=== PATIENT | male | born 1985 | race Two or more races ===

== ENCOUNTER 2018-04-03 01:23 | Observation (INO) | payer SELFPAY ==
[2018-04-03 02:22] LABS: #Lymphocytes 2.7 thou/uL (1.20-3.40); #Monocytes 0.7 thou/uL (0.11-0.59); #Neutrophils 6.1 thou/uL (1.40-6.50); %Basophils 0.5 % (0.0-1.0); %Eosinophils 0.5 % (0.0-10.0); %Lymphocytes 28.7 % (21.0-51.0); %Monocytes 6.8 % (0.0-10.0); %Neutrophils 63.6 % (42.0-75.0); Hemoglobin 14.1 g/dL (14.0-18.0); Mean Corpuscular HGB CONC 33.1 g/dL (32.0-36.0); Mean Corpuscular Hemoglobin 30.6 pg (27.0-31.0); Mean Corpuscular Volume 92.3 fL (78.0-98.0); Mean Platelet Volume 5.9 fL (7.4-10.4); Platelet Count 261 thou/uL (130-400); RBC Distribution Width 11.5 % (11.5-14.5); White Blood Cell (WBC) Count 9.5 thou/uL (4.8-10.8)
[2018-04-03 02:48] LABS: ALT (SGPT) 7 U/L (8-55); AST (SGOT) 14 U/L (5-34); Albumin 4.2 g/dL (3.5-5.0); Alkaline Phosphatase 48 U/L (40-150); Anion Gap 13 mmol/L (10-20); BUN (Urea Nitrogen) 10 mg/dL (8.9-20.6); Bilirubin, Total 0.3 mg/dL (0.2-1.2); CK (CPK) 221 U/L (30-200); Calc. Creatinine Clearance 0 mL/min (70-130); Calcium 9.4 mg/dL (7.8-10.44); Carbon Dioxide 25 mmol/L (22-29); Chloride 108 mmol/L (98-107); Estimated GFR-MDRD Greater than 90; Globulin 2.4 g/dL (2.4-3.5); Glucose 93 mg/dL (70-105); Lipase 25 U/L (8-78); Potassium 4.1 mmol/L (3.5-5.1); Protein, Total 6.6 g/dL (6.0-8.3); Sodium 142 mmol/L (136-145)
[2018-04-03 03:23] LABS: Bilirubin Small (Negative); Blood, Urine Negative (Negative); Clarity CLEAR (Clear); Glucose, Urine (Dipstick) Negative (Negative); Leukocyte Negative (Negative); Nitrite Negative (Negative); Protein, Urine (Dipstick) Negative (Neg-Trace); Specific Gravity, Urine 1.027 (1.002-1.036); pH, Urine 5.5 (5.0-9.0)
[2018-04-03] MEDS ORDERED: Ondansetron ODT 4 MG TAB PO PRN (06:57)
[2018-04-03] MEDS ORDERED: Ondansetron PF 4 MG/2 ML Vial IVP PRN (06:57)
--- NOTE | 2018-04-03 07:57 | CT ---
PRELIMINARY REPORT/[facility]/EMERGENTY AFTER-HOURS PROCEDURE CT Head Without Contrast EXAM DATE/TIME: 04/03/2018 1:58 AM CLINICAL HISTORY: 32 years old, male; Signs and symptoms; Syncope and collapse; Patient HX: 32/m PT presents with compl aint of syncope, chest pain, and diaphoresis anesthesia technician. States he is unsure how long he passed out for, he was pulled into a truck stop and blacked out, urinated on himself, then went inside to call 911. No chest pain at this time. TECHNIQUE: Axial computed tomography images of the head/brain without contrast. COMPARISON: No relevant prior studies available. FINDINGS: Brain: Normal. Ventricles: Normal. Bones/joints: Normal. Sinuses: Right sphenoid sinus disease. Mastoid air cells: Normal as visualized. Soft tissues: Unremarkable. IMPRESSION: No acute intracranial abnormality. Thank you for allowing us to participate in the care of your patient. Dictated and Authenticated by: Rajesh Hamlin MD 04/03/2018 2:30 AM Central Time ([place] & [place]) FINAL REPORT CT HEAD NONCONTRAST: DATE: 04/03/2018. TIME: Performed on an emergency basis at 0158 hours. HISTORY: Syncope. FINDINGS: Agree with the preliminary report by Dr. Hamlin from [facility]. No acute intracranial abnorm alities are demonstrated. POS: [facility]
--- NOTE | 2018-04-03 08:06 | RAD ---
SINGLE VIEW OF THE CHEST: COMPARISON: 04/03/2018. HISTORY: Chest pain. FINDINGS: Single view of the chest shows a normal sized cardiomediastinal silhouette. There is no evidence of c onsolidation, mass, or pleural effusion. The bones are unremarkable. IMPRESSION: No evidence of acute cardiopulmonary disease. POS: [facility]
[2018-04-03 08:23] VITALS: BMI 31.4
[2018-04-03] MEDS: Sodium Chloride 0.9% 1,000 ML IV SCH ×2 (08:59→15:13)
[2018-04-03] MEDS ORDERED: Aspirin Chewable 81 MG TAB PO SCH (09:00)
[2018-04-03] MEDS ORDERED: Acetaminophen 325 MG TAB PO PRN (11:23)
--- NOTE | 2018-04-03 18:14 | HP ---
CHIEF COMPLAINT: Syncope. HISTORY OF PRESENT ILLNESS: The patient is a 32-year-old male with history of HIV, currently on medications, who presented to the hospital with syncopal episode. The patient stated that after getting his blood tested for normal routine labs on Sunday, a few hours later, he started feeling lightheaded and not feeling well. The patient at that time cannot rest throughout the whole day. On Sunday, he felt well, so he decided to go to work Sunday evening. The patient stated that initially after he had unloaded some boxes, started feeling very lightheaded, feeling flushed, was diaphoretic and at this time felt that his heart was pumping very hard. He denied any palpitation. He just felt that his heart was beating very strongly. At this time, the patient stated that he may just go back to his truck where he does have a little bed to lie down and the patient recalled that he apparently passed out and woke up, approximately about maybe about 5 minutes. The patient stated that he had noticed that he had urinated on himself. The patient denied being confused after this episode. The patient states that this has never happened to him before. He does recall that when he was a child, he did have an arrhythmia. I am not sure if this was induced due to medication versus this was something in terms of his heart issues. The patient was put on a monitor for weeks to months according to him. However, the patient does not recall what this event was. The patient states that on and off he has had a feeling of dizziness and feeling his heart beating very strong, however, no palpitations. PAST MEDICAL HISTORY: He has a history of HIV. PAST SURGICAL HISTORY: Denies. ALLERGIES: HE IS ALLERGIC TO CODEINE. MEDICATIONS: He takes, 1. Emtricitabine/tenofovir. 2. Darunavir/cobicistat. FAMILY HISTORY: The patient has a strong history of heart disease. Father had at his early age. Mother is still around, had some heart issues also. REVIEW OF SYSTEMS: All negative except for the ones mentioned above in the HPI. PHYSICAL EXAMINATION: VITAL SIGNS: Temperature 99.2, pulse 60, respiratory rate 16, 98% on room air, and blood pressure 125/60. GENERAL: He is awake, alert, and oriented x3. Does not appear in distress. HEENT: Normocephalic, atraumatic. Pupils are equal and reactive to light. CV: S1 and S2 present. No murmurs, rubs, or gallops. LUNGS: Clear to auscultation. No rhonchi or wheezes noted. ABDOMEN: Soft and nontender. Bowel sounds are present x2. EXTREMITIES: No edema. Pedal pulses are present x2. NEUROVASCULAR: Neurovascular-buchanan, no focal deficits noted. SKIN: The patient does have significant amount of tattooing all around. LABORATORY RESULTS: WBCs of 9.5, hemoglobin of 14.1, hematocrit of 42.4, and platelets of 261. Chemistries; sodium of 142, potassium of 4.1, BUN of 10, creatinine of 0.92, AST of 14, and ALT of 7. CK of 221, troponin x3 were negative. BNP was 20. Prolactin was 4.99. IMAGING DATA: He had a CT head, which was negative. Chest x-ray was negative. EKG appeared to be normal. ASSESSMENT AND PLAN: The patient is a very pleasant 32-year-old male, who presents to the hospital with syncopal episode. 1. Syncope. It could be secondary to cardiac event versus vasovagal versus seizures versus dehydration. Orthostatics were negative. Given the patient's previous history of arrhythmia, he will be continued to monitor on telemetry. I will consult Cardiology. I will also get an echocardiogram. His troponins that were checked were negative x3. His prolactin level 4.99, however, I will do an EEG since he stated that he was incontinent after when he woke up. However, he did not have a postictal state according to him. I did advise the patient that he should not be driving in this condition until he is cleared. 2. Human immunodeficiency virus. I will continue his home medications. 3. Deep vein thrombosis prophylaxis. I will put the patient on SCDs. Job ID: [id number]
--- NOTE | 2018-04-04 00:18 | CON ---
DATE OF CONSULTATION: 04/03/2018 HISTORY OF PRESENT ILLNESS: The patient is a 32-year-old gentleman, who presented with chest pain and loss of consciousness. The patient has no previous history of coronary artery disease. The patient states he does have a history of some type of cardiac arrhythmia. He states he wore a Holter monitor many years ago. 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 This lasted for approximately 20 minutes. He suddenly passed out in his truck. He lost control of his bladder. The patient called the ambulance and was brought to the hospital for evaluation. The patient states his chest pain eventually resolved when he was in the emergency room. The patient denies having any previous history of syncope. PAST MEDICAL HISTORY: Significant for: 1. HIV positive. 2. Manic depression. PAST SURGICAL HISTORY: He has had a perirectal abscess surgery. SOCIAL HISTORY: He smokes one pack per day. He does not use illicit drugs. FAMILY HISTORY: There is a positive family history of coronary artery disease. ALLERGIES: HE IS ALLERGIC TO CODEINE. MEDICATIONS ON ADMISSION: He takes, 1. Descovy 200/25 daily. 2. Prezcobix 800 mg/150 tablets daily. REVIEW OF SYSTEMS: Ten-point system otherwise unremarkable. PHYSICAL EXAMINATION: GENERAL: Obese gentleman, in no acute distress. VITAL SIGNS: Blood pressure lying down was 107/65, sitting was 121/75, standing 111/75. NECK: Showed no jugular venous distention. LUNGS: Clear to auscultation. HEART: Regular rate and rhythm. Normal S1, S2. ABDOMEN: Distended. EXTREMITIES: Showed trace edema. VASCULAR: Radial pulses are 2+. LABORATORY DATA: His sodium 142, potassium 4.1, chloride 108, bicarbonate 25, BUN 10, creatinine is 0.92, glucose is 93. Troponin less than 0.01. BNP was 20. Prolactin was 4.9. His white blood cell count was 9.5, hemoglobin 14.1, hematocrit 42.4, and platelets 261. His EKG reveals normal sinus rhythm, normal ECG. IMPRESSION: 1. Syncope. 2. Chest pain. 3. HIV positive. 4. Manic depression. 5. Tobacco abuse. This gentleman had a syncopal episode and it is unclear what was the etiology. His electrocardiogram is unremarkable and echocardiogram will be obtained to evaluate his left ventricular function, because he had chest pain prior to the event. We would recommend he undergo stress testing. We will perform an exercise treadmill test. The patient also will probably need to undergo EP evaluation during this hospitalization. From a cardiac standpoint, it is imperative this patient not drive a motor vehicle. He has been warned of the potential life-threatening consequences of him with his history of syncope of driving a motor vehicle. We will follow this patient with you through his hospitalization in the office of Dr. Nichols. Job ID: [id number]
[2018-04-04 06:32] LABS: #Basophils 0.1 thou/uL (0.0-0.2); #Eosinphils 0.1 thou/uL (0.0-0.7); #Lymphocytes 2.9 thou/uL (1.20-3.40); #Monocytes 0.7 thou/uL (0.11-0.59); #Neutrophils 8.4 thou/uL (1.40-6.50); %Basophils 0.6 % (0.0-1.0); %Eosinophils 0.6 % (0.0-10.0); %Lymphocytes 23.9 % (21.0-51.0); %Monocytes 5.9 % (0.0-10.0); Hemoglobin 13.5 g/dL (14.0-18.0); Mean Corpuscular HGB CONC 32.4 g/dL (32.0-36.0); Mean Corpuscular Hemoglobin 29.9 pg (27.0-31.0); Mean Corpuscular Volume 92.3 fL (78.0-98.0); Mean Platelet Volume 6.3 fL (7.4-10.4); Platelet Count 262 thou/uL (130-400); RBC Distribution Width 11.4 % (11.5-14.5); Red Blood Cell (RBC) Count 4.51 mill/uL (4.70-6.10); White Blood Cell (WBC) Count 12.2 thou/uL (4.8-10.8)
[2018-04-04 06:44] LABS: Anion Gap 14 mmol/L (10-20); BUN (Urea Nitrogen) 9 mg/dL (8.9-20.6); Calc. Creatinine Clearance 210 mL/min (70-130); Calcium 9.2 mg/dL (7.8-10.44); Carbon Dioxide 23 mmol/L (22-29); Chloride 108 mmol/L (98-107); Estimated GFR-MDRD Greater than 90; Glucose 85 mg/dL (70-105); Potassium 3.7 mmol/L (3.5-5.1); Sodium 141 mmol/L (136-145)
[2018-04-04] MEDS: Aspirin 81 mg Enteric Coated Tablet PO SCH (10:09)
--- NOTE | 2018-04-04 22:59 | CON ---
DATE OF CONSULTATION: 04/04/2018 REFERRING PHYSICIAN: Mars Mckeon M.D. HISTORY OF PRESENT ILLNESS: I am seeing Mr. 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 His problems are: 1. Recurrent syncopal spells. 2. Atypical chest pains. 3. Remote history of arrhythmia as a child, details unclear. 4. Stress test negative this admission, echo pending, but no prior history of heart disease noted. 5. History of HIV positivity, on therapy. 6. Allergies are codeine. MEDICATIONS: At home include, emtricitabine/tenofovir/darunavir/cobicistat. SUBJECTIVE: Mr. Alba is complaining of 2 episodes of syncopal spell. He had some blood testing performed on Sunday. A few hours later, he develop feeling lightheaded, not feeling well, hot sensation was felt. He went eventually to his truck and then passed out. He even had some incontinence at that time. He does not remember palpitations. He has had some strong heart beatings. The episode might have last about 5 minutes. Minimal confusion after the episodes. No tongue biting noted. The second episode was similar the day before. The rest of 12-point system otherwise unremarkable. He does have some atypical chest pains associated with some of the spells. SOCIAL HISTORY: The patient denies smoking, EtOH or drug abuse. PAST SURGICAL HISTORY: Denies. FAMILY HISTORY: Significant for heart disease. Father had at the early age. Mother has at an early age. Father has some heart issues. OBJECTIVE DATA: VITAL SIGNS: Blood pressure is 120/65, heart rate is 62, respiratory rate is 20, temperature 98.6 degrees Fahrenheit. PHYSICAL EXAMINATION: GENERAL: Alert and oriented man, in no apparent distress. NECK: Supple. Jugular veins not distended. CHEST: Coarse without crackles. HEART: Sounds are regular to rate and rhythm. No murmur or gallop. ABDOMEN: Benign. Bowel sounds are positive. LOWER EXTREMITY: Without edema clubbing or cyanosis. IMAGING: The EKG was reviewed revealing sinus rhythm with respiratory variation, occasional PACs, rate of 63 beats per minute, narrow QRS is seen at 80 milliseconds, QTc 470 milliseconds. LABORATORY NIKHIL: White count is 12.2, hemoglobin 7.5, platelet count is 262. Sodium 141, potassium 3.7, BUN is 9, creatinine 0.8. ASSESSMENT AND PLAN: Mr. Alba is a pleasant 32-year-old man with prior history of human immunodeficiency virus positivity on adequate suppressive therapy. He presented with recurrent syncopal spell, episodes could represent a vasovagal episode, although incontinence is rather unusual. So far, no definite neurologic abnormalities and negative CT scan is noted. EKGs are also unrevealing. He has recurrent episodes and significant syncopal spell. I think it is reasonable to consider continued monitoring. Implantable loop recorder is suggested. Discussed alternative of prolonged event monitor wearing as well. We agreed on loop recorder. We will schedule him for near date. Thank you again for allowing me to participate in the care of this patient. Job ID: [id number]
[2018-04-05] MEDS: Aspirin 81 mg Enteric Coated Tablet PO SCH (08:33)
--- NOTE | 2018-04-05 08:46 | EEG ---
Referring Physician: Ruthann ANDERSON EEG # [id number] TEST TYPE: ROUTINE PORTABLE INPATIENT REPORT: AN EEG USING THE INTERNATIONAL TEN-TWENTY SYSTEM OF ELECTRODE PLACEMENT WAS PERFORMED. The waking background is an 8-9 hertz occipitally dominant alpha frequency. The patient became drowsy during the study. Hyperventilation and photic stimulation were unremarkable. No epileptiform features were seen. IMPRESSION: THIS IS A NORMAL AWAKE AND DROWSY EEG. [employer] Consultant: KIMBERLEY Link Machine Operator: [email or web address]
--- NOTE | 2018-04-05 11:58 | OP ---
DATE OF PROCEDURE: 04/05/2018 PROCEDURE PERFORMED: Loop recorder insertion. REFERRING PHYSICIAN: Dr. Mckeon. REASON FOR PROCEDURE: Mr. Alba is a 32-year-old man with history of HIV positivity, but no history of heart disease. His workup revealed near normal LVEF about 50%, mild LVH by echo, no ischemia by stress test. Telemetry so far unrevealing, except for mild resting bradycardia. He is here for loop recorder insertion. DESCRIPTION OF PROCEDURE: The patient received prep, drape, and subcutaneous lidocaine for local analgesia at the fourth intercostal space on the left precordial area. With a standard [employer] tool kit, incision was made and Medtronic LINQ device was inserted. The patient tolerated the procedure well. No complications noted. The wound was closed with Dermabond and Steri-Strips. PLAN: Routine continue monitoring in Dr. Mckeon's office. Follow up with me as needed. Job ID: [id number]
[2018-04-05 15:53] VITALS: BP 124/69; TEMP 98.5
--- NOTE | 2018-04-07 21:43 | DIS ---
DATE OF ADMISSION: 04/03/2018 DATE OF DISCHARGE: 04/05/2018 DISCHARGE DIAGNOSES: As of the following; 1. Syncope, possibly due to arrhythmia. 2. Atypical chest pain. 3. History of human immunodeficiency virus, on medications. HOSPITAL COURSE: The patient is a 32-year-old male with a history of HIV, currently on medication, has been followed with the clinic in [place], who presented to the hospital after having a syncopal episode. Please refer to my H and P for further evaluation. The patient was then seen by Cardiology. His cardiac enzymes were negative x3. He did have an echocardiogram, which indicated an EF of 50% to 55%. Normal valves. He also had exercise stress test, which was negative. He had a CT brain, which was negative. He also had an EEG given his atypical presentation of urinating after his syncopal episode and his EEG was normal. He also was seen by EP, underwent a loop monitor insertion for further evaluation for his arrhythmias. The patient was then discharged home. He was advised not to drive and needs to follow up with his PCP and his EP doctor before he is given approval to drive. MEDICATIONS: He is going to continue both of his antiviral medications. PHYSICAL EXAMINATION: VITAL SIGNS: Temperature 98.5, pulse 64, respirations 20, O2 saturations 99% on room air, and blood pressure 124/69. GENERAL: He is awake, alert, and oriented x3. Does not appear in distress. CV: S1, S2 present. No murmurs, rubs, or gallops. ABDOMEN: Soft, nontender. Bowel sounds are present x2. EXTREMITIES: No edema. Pedal pulses are present x2. Again, he will be discharged home. Follow up with EP and PCP and he has been advised not to drive. Job ID: [id number]
== END 2018-04-05 16:10 | disposition home or self-care (01) ==
LOC: ERS 01:23 → ERHOLD 04:15 → 2SE 06:18
PROVIDERS: ADMIT Hospitalist; ATTEND Internal Medicine Cardiovascular Disease
PROC: 0JH602Z Insertion of Monitoring Device into Chest Subcutaneous Tissue and Fascia, Open Approach (ICD-10-PCS; principal; 2018-04-05)
DX: R55 Syncope and collapse (principal); R07.89 Other chest pain; B20 Human immunodeficiency virus [HIV] disease; F17.210 Nicotine dependence, cigarettes, uncomplicated; F31.9 Bipolar disorder, unspecified; Z88.5 Allergy status to narcotic agent; Z79.899 Other long term (current) drug therapy
CPT/HCPCS: 33285; 36415; 70450; 71045; 80048; 80053; 81003; 82550; 83690; 83880; 84146; 84484; 85025; 85379; 90471; 90686; 90732; 93005; 93017; 93306; 95816; 95819; 96360; 96361; C1764; G0008; G0009; G0378